=== PATIENT | female | born 2000 | race Two or more races ===

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

== ENCOUNTER 2021-03-29 17:50 | Emergency (ER) | payer SELFPAY ==
[2021-03-29] MEDS ORDERED: Ondansetron PF 4 MG/2 ML Vial ONE (20:48)
[2021-03-29 20:58] LABS: #Lymphocytes 1.1 thou/uL (1.20-3.40); #Monocytes 0.4 thou/uL (0.11-0.59); #Neutrophils 9.6 thou/uL (1.40-6.50); %Basophils 0.2 % (0.0-1.0); %Eosinophils 0.1 % (0.0-10.0); %Lymphocytes 10.2 % (28.0-48.0); %Monocytes 3.9 % (0.0-4.0); %Neutrophils 85.6 % (31.0-61.0); Hemoglobin 15.2 g/dL (12.0-16.0); Mean Corpuscular HGB CONC 34.9 g/dL (32.0-36.0); Mean Corpuscular Hemoglobin 32.4 pg (25.0-35.0); Mean Corpuscular Volume 92.8 fL (78.0-98.0); Mean Platelet Volume 8.9 fL (7.4-10.4); Platelet Count 276 thou/uL (130-400); RBC Distribution Width 11.4 % (11.5-14.5); White Blood Cell (WBC) Count 11.2 thou/uL (4.8-10.8)
[2021-03-29 21:44] LABS: ALT (SGPT) 14 U/L (8-55); AST (SGOT) 14 U/L (5-34); Albumin 4.4 g/dL (3.5-5.0); Alkaline Phosphatase 77 U/L (40-100); Anion Gap 17 mmol/L (10-20); BUN (Urea Nitrogen) 8 mg/dL (7.0-18.7); Bilirubin, Total 0.9 mg/dL (0.2-1.2); Calc. Creatinine Clearance 0 mL/min (70-130); Carbon Dioxide 19 mmol/L (22-29); Chloride 107 mmol/L (98-107); Globulin 3.7 g/dL (2.4-3.5); Glucose 95 mg/dL (70-105); Lipase 39 U/L (8-78); Potassium 3.5 mmol/L (3.5-5.1); Protein, Total 8.1 g/dL (6.0-8.3); Sodium 139 mmol/L (136-145)
[2021-03-29 21:58] LABS: BHCG - Serum Negative (NEGATIVE); Pregs Control Background? CLEAR/WHITE (CLR/WHITE); Pregs Control Bar Appear? YES (CONTROL BAR)
== END 2021-03-29 22:30 | disposition home or self-care (01) ==
LOC: ERS 17:50
DX: R10.13 Epigastric pain (principal); R11.2 Nausea with vomiting, unspecified
CPT/HCPCS: 36415; 80053; 83690; 84703; 85025; 96372; 96374; J0500; J2405

== ENCOUNTER 2021-03-31 08:40 | Emergency (ER) | payer SELFPAY ==
[2021-03-31] MEDS ORDERED: Lorazepam 2 MG/ML VIAL ONE (09:27)
[2021-03-31] MEDS ORDERED: Ondansetron PF 4 MG/2 ML Vial ONE (09:28)
[2021-03-31 09:52] LABS: #Eosinphils 0.1 thou/uL (0.0-0.7); #Lymphocytes 1.9 thou/uL (1.20-3.40); #Monocytes 0.5 thou/uL (0.11-0.59); #Neutrophils 7.7 thou/uL (1.40-6.50); %Basophils 0.4 % (0.0-1.0); %Lymphocytes 18.3 % (28.0-48.0); %Monocytes 4.7 % (0.0-4.0); %Neutrophils 75.5 % (31.0-61.0); Hemoglobin 15.3 g/dL (12.0-16.0); Mean Corpuscular HGB CONC 34.5 g/dL (32.0-36.0); Mean Corpuscular Hemoglobin 31.9 pg (25.0-35.0); Mean Corpuscular Volume 92.5 fL (78.0-98.0); Mean Platelet Volume 9.3 fL (7.4-10.4); Platelet Count 252 thou/uL (130-400); RBC Distribution Width 11.5 % (11.5-14.5); Red Blood Cell (RBC) Count 4.79 mill/uL (4.00-5.20); White Blood Cell (WBC) Count 10.2 thou/uL (4.8-10.8)
[2021-03-31] MEDS ORDERED: Haloperidol Lactate 5 MG/ML VIAL ONE (10:03)
[2021-03-31 10:04] LABS: BHCG - Serum Negative (NEGATIVE); Pregs Control Background? CLEAR/WHITE (CLR/WHITE); Pregs Control Bar Appear? YES (CONTROL BAR)
[2021-03-31 10:08] LABS: ALT (SGPT) 14 U/L (8-55); AST (SGOT) 17 U/L (5-34); Alkaline Phosphatase 67 U/L (40-100); Anion Gap 16 mmol/L (10-20); BUN (Urea Nitrogen) 10 mg/dL (7.0-18.7); Bilirubin, Total 0.8 mg/dL (0.2-1.2); Calc. Creatinine Clearance 0 mL/min (70-130); Calcium 9.6 mg/dL (7.8-10.44); Carbon Dioxide 18 mmol/L (22-29); Chloride 107 mmol/L (98-107); Globulin 3.5 g/dL (2.4-3.5); Glucose 90 mg/dL (70-105); Lipase 36 U/L (8-78); Protein, Total 7.5 g/dL (6.0-8.3); Sodium 138 mmol/L (136-145)
[2021-03-31 10:11] LABS: Potassium 2.8 mmol/L (3.5-5.1)
[2021-03-31] MEDS ORDERED: Potassium Chloride 20 MEQ TAB ONE (10:25)
[2021-03-31 10:44] LABS: Magnesium 1.9 mg/dL (1.7-2.2)
[2021-03-31] MEDS ORDERED: Iopamidol-370 76% 500 ML 1 ML ONE (11:54)
[2021-03-31 12:20] LABS: Bilirubin Negative (Negative); Blood, Urine Large (Negative); Glucose, Urine (Dipstick) Negative (Negative); Ketone, Urine Negative (Negative); Leukocyte Negative (Negative); Nitrite Negative (Negative); Protein, Urine (Dipstick) Negative (Neg-Trace); Urobilinogen 0.2 mg/dL (Less than 2); pH, Urine 5.5 (5.0-9.0)
[2021-03-31 12:21] LABS: Clarity Hazy (Clear)
[2021-03-31 12:23] LABS: Bacteria/HPF 1+ HPF (None Seen); Specific Gravity, Urine Greater than 1.060 (1.002-1.036)
[2021-03-31 12:24] LABS: WBC/HPF 0-3 HPF (0-3)
== END 2021-03-31 13:03 | disposition home or self-care (01) ==
LOC: ERS 08:40
DX: R10.13 Epigastric pain (principal)
CPT/HCPCS: 74177; 80053; 81003; 81015; 83690; 83735; 84703; 85025; 93005; 94760; 96374; 96375; J1630; J2060; J2405; Q9967